=== PATIENT | female | born 1995 | race Caucasian/White ===

== ENCOUNTER 2016-12-29 18:15 | Emergency (ER) | payer BC ==
--- NOTE | 2016-12-29 18:33 | ERPHSYRPT ---
- History of Present Illness Time Seen by Provider: 12/29/16 18:28 Source: patient Exam Limitations: no limitations Patient Subjective Stated Complaint: PT PINK WARM ET DRY-A & O X 3-STATES THAT SHE HAS HAD A COUGH WITH LIGHT BROWN MUCOUS BEGINNING OVER A MONTH AGO-STATES THAT SHE HAS CLEAR NASAL DRAINAGE-PT DENIES FEVER Triage Nursing Assessment: LUNGS TIGHT ET DIMINISHED ON THE RIGHT-NO RETRACTIONS NOTED-RESP EASY ET NONLABORED AT THIS TIME Physician History: The patient is a 21-year-old female who comes in complaining of a cough for about one month. Her cough nearly resolved for about one week but for the past 2-3 weeks it is still present. Today she has a stuffy nose. She has chest pain when she takes a deep breath. She also has chest pain when she coughs. She smokes. Timing/Duration: week(s) (4) Cough Quality/Degree: productive cough Possible Cause: no prior episodes Modifying Factors: Improves With: coughing Associated Symptoms: cough, nasal drainage Allergies/Adverse Reactions: Antihistamines - Alkylamine Allergy (Intermediate, Verified 12/29/16 18:28) iodine Adverse Reaction (Intermediate, Verified 12/29/16 18:28) Home Medications: No Home Meds 1 ea MC UD 12/29/16 [History] Hx Tetanus, Diphtheria Vaccination/Date Given: Yes Hx Influenza Vaccination/Date Given: No Hx Pneumococcal Vaccination/Date Given: No Immunizations Up to Date: Yes - Review of Systems Constitutional: No Fever, No Chills Eyes: No Symptoms Ears, Nose, & Throat: No Symptoms Respiratory: Cough Cardiac: Chest Pain (with coughing) Abdominal/Gastrointestinal: No Abdominal Pain, No Nausea, No Vomiting, No Diarrhea Genitourinary Symptoms: No Dysuria Musculoskeletal: No Back Pain, No Neck Pain Skin: No Rash Neurological: No Dizziness, No Focal Weakness, No Sensory Changes Psychological: No Symptoms Endocrine: No Symptoms Hematologic/Lymphatic: No Symptoms Immunological/Allergic: No Symptoms All Other Systems: Reviewed and Negative - Past Medical History Pertinent Past Medical History: Yes Neurological History: Other - Past Surgical History Past Surgical History: Yes Neuro Surgical History: Neurological Surgery Other Surgical History: BRAIN SURGERY - Social History Smoking Status: Current every day smoker How long have you smoked: YRS Exposure to second hand smoke: No Drug Use: none Patient Lives Alone: No - Female History Hx Last Menstrual Period: IMPLANT Hx Now: No - Nursing Vital Signs Nursing Vital Signs: Initial Vital Signs Temperature 97.6 F Temperature Source Oral Pulse Rate 73 Respiratory Rate 22 Blood Pressure [Right Arm] 124/84 Pain Intensity 0 - Physical Exam General Appearance: no apparent distress, alert Eye Exam: PERRL/EOMI, eyes nml inspection Ears, Nose, Throat Exam: normal ENT inspection, TMs normal, pharynx normal, moist mucous membranes Neck Exam: normal inspection, non-tender, supple, full range of motion Respiratory Exam: normal breath sounds, lungs clear, No respiratory distress Cardiovascular Exam: regular rate/rhythm, normal heart sounds Gastrointestinal/Abdomen Exam: soft, No tenderness Pelvic Exam: not done Rectal Exam: not done Back Exam: normal inspection, No CVA tenderness, No vertebral tenderness Extremity Exam: normal inspection, normal range of motion Neurologic Exam: alert, oriented x 3, cooperative, normal mood/affect, sensation nml, No motor deficits Skin Exam: normal color, warm, dry, No rash Lymphatic Exam: No adenopathy SpO2 Interpretation: normal SpO2: 98 Oxygen Delivery: Room Air - Radiology Exams Chest X-ray Interpretation: Negative Ordered Tests: Active Orders 24 hr Category Date Time Status CHEST 2 VIEWS (PA AND LAT) Stat Exams 12/29/16 18:35 Taken Medication Summary Discontinued Medications Generic Name Dose Route Start Last Admin Trade Name Paul PRN Reason Stop Dose Admin Ketorolac Tromethamine 60 mg 12/29/16 18:36 Toradol 30 Mg Injection IM 12/29/16 18:37 STAT ONE - Progress Progress: unchanged Air Movement: good Blood Culture(s) Obtained: No Antibiotics given: No Counseled pt/family regarding: rad results - Departure Time of Disposition: 18:50 Departure Disposition: Home Clinical Impression: Cough Condition: Stable Critical Care Time: No Additional Instructions: Because you smoke and have had a cough for 1 month, please take augmentin 875 twice a day for 10 days. You have today off from work. Prescriptions: Amoxicillin/Potassium Clav [Augmentin 875-125 Tablet] 875 mg PO BID #20 tablet
[2016-12-29] MEDS ORDERED: TORAdol 30 mg Injection IM ONE (18:36)
[2016-12-29] MEDS ORDERED: TORAdol 30 mg Injection ONE (18:50)
[2016-12-29 19:00] VITALS: BP 115/80; PULSE 68; O2SAT 97
--- NOTE | 2016-12-29 22:25 | XRAY ---
Indication: Productive cough. Comparison: October 05, 2012. PA/lateral chest again demonstrates normal heart and lungs. Bony thorax intact with stable minimal scoliosis. No new/acute findings.
== END 2016-12-29 19:00 | disposition home or self-care (01) ==
LOC: ED 18:15
DX: R05 Cough (principal); R07.89 Other chest pain
CPT/HCPCS: 71020; 96372; 99284; J1885

== ENCOUNTER 2017-02-14 23:03 | Emergency (ER) | payer BC ==
--- NOTE | 2017-02-14 23:45 | ERPHSYRPT ---
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 PT C/O LOWER MID SHARP INTERMITTENT ABDOMINAL/PELVIC PAIN LASTING UP TO 15 SECONDS PER EPISODE. LAST BM WAS TODAY & WNL. PT ALSO FEELS WEAK & LIGHTHEADED SINCE YESTERDAY. Allergies/Adverse Reactions: Antihistamines - Alkylamine Allergy (Intermediate, Verified 02/14/17 23:34) iodine Adverse Reaction (Intermediate, Verified 02/14/17 23:34) Home Medications: Levonorgestrel [Blanca] 02/15/17 [History] Hx Tetanus, Diphtheria Vaccination/Date Given: Yes Hx Influenza Vaccination/Date Given: No Hx Pneumococcal Vaccination/Date Given: No - Review of Systems Constitutional: Weakness Abdominal/Gastrointestinal: Abdominal Pain Genitourinary Symptoms: Vaginal Bleeding Musculoskeletal: Back Pain (OCCASIONAL LOW BACK PAIN(ONGOING).) Neurological: Other (LIGHTHEADEDNESS) All Other Systems: Reviewed and Negative - Past Medical History Pertinent Past Medical History: Yes Neurological History: Other - Past Surgical History Past Surgical History: Yes Neuro Surgical History: Neurological Surgery Other Surgical History: BRAIN SURGERY colposcopy 02/07 - Social History Smoking Status: Never smoker How long have you smoked: YRS Exposure to second hand smoke: No Drug Use: none Patient Lives Alone: No - Female History Hx Last Menstrual Period: 2 months ago Hx Now: No - Nursing Vital Signs Nursing Vital Signs: Initial Vital Signs Temperature 99 F Temperature Source Oral Pulse Rate 76 Respiratory Rate 16 Blood Pressure [] 116/78 Pain Intensity 0 - Physical Exam General Appearance: alert Eye Exam: PERRL/EOMI, eyes nml inspection Ears, Nose, Throat Exam: TMs normal, pharynx normal, moist mucous membranes Neck Exam: normal inspection Respiratory Exam: lungs clear Cardiovascular Exam: regular rate/rhythm, normal heart sounds Gastrointestinal/Abdomen Exam: soft, normal bowel sounds Back Exam: normal range of motion Extremity Exam: normal inspection, No pedal edema Neurologic Exam: alert, cooperative Skin Exam: warm, dry - Course Nursing assessment & vital signs reviewed: Yes - CT Exams Abdomen/Pelvis CT Interpretation: Tele-radiologist Report (IUD IN APPROPRIATE POSITION. CORRELATE CLINICALLY FOR INFECTION. RECOMMEND ULTRASOUND THE UTERUS AND STRIPE ARE BETTER EVALUATED SONOGRAPHICALLY. MILD STRANDING IN THE ANTERIOR PELVIC FAT.) - Radiology Ultrasound Exam Pelvis Ultrasound: Other (TECH REPORT: IUD IN PLACE; NO ABSCESS OR SIGN OF INFECTION.) Ordered Tests: Active Orders 24 hr Category Date Time Status Clean Catch Urine Specimen STAT Care 02/15/17 00:06 Active ABDOMEN AND PELVIS W/0 CONTRAS [CT] Stat Exams 02/14/17 23:42 Taken PELVIS TRANS VAGINAL [US] Stat Exams 02/15/17 01:13 Taken AMYLASE Stat Lab 02/14/17 23:50 Completed CBC W DIFF Stat Lab 02/14/17 23:50 Completed CMP Stat Lab 02/14/17 23:50 Completed HCG QUALITATIVE,SERUM Stat Lab 02/14/17 23:50 Completed LIPASE Stat Lab 02/14/17 23:50 Completed PROTIME WITH INR Stat Lab 02/14/17 23:50 Completed PTT Stat Lab 02/14/17 23:50 Completed UA W/ MICROSCOPIC Stat Lab 02/14/17 23:55 Completed Urine Triage Profile Stat Lab 02/15/17 00:06 Completed Lab/Rad Data: Laboratory Result Diagrams 02/14/17 23:50 02/14/17 23:50 Laboratory Results 02/15/17 02/14/17 02/14/17 Range/Units 00:06 23:55 23:50 WBC (4.0-10.5) K/mm3 RBC (4.1-5.4) M/mm3 Hgb (12.0-16.0) gm/dl Hct (35-47) % MCV (78-100) fl MCH (26-32) pg MCHC (32-36) g/dl RDW (11.5-14.0) % Plt Count (150-450) K/mm3 MPV (6-9.5) fl Gran % (36.0-66.0) % Lymphocytes % (24.0-44.0) % Monocytes % (0.0-12.0) % Eosinophils % (0.00-5.0) % Basophils % (0.0-0.4) % Basophils # (0-0.4) INR 0.92 (0.8-3.0) PTT 25.7 (25.3-37.0) SECONDS Sodium (136-145) mEq/L Potassium (3.5-5.1) mEq/L Chloride (98-107) mEq/L Carbon Dioxide (21-32) mEq/L Anion Gap (5-15) MEQ/L BUN (9-20) mg/dL Creatinine (0.55-1.30) mg/dl Estimated GFR ML/MIN Glucose (70-110) MG/DL Calcium (8.5-10.1) mg/dL Total Bilirubin (0.2-1.0) mg/dL AST (15-37) U/L ALT (12-78) U/L Alkaline Phosphatase (46-116) U/L Serum Total Protein (6.4-8.2) gm/dL Albumin (3.4-5.0) g/dL Amylase (25-115) U/L Lipase (73-393) U/L Serum , Qual (Negative) Ur Collection Type CLEAN CATCH Urine Color LT.YELLOW (YELLOW) Urine Appearance CLEAR (CLEAR) Urine pH 7.0 (5-6) Ur Specific [place] 1.010 (1.005-1.025) Urine Protein NEGATIVE (Negative) Urine Glucose (UA) NEGATIVE (NEGATIVE) mg/dL Urine Ketones NEGATIVE (NEGATIVE) Urine Nitrite NEGATIVE (NEGATIVE) Urine Bilirubin NEGATIVE (NEGATIVE) Urine Urobilinogen 0.2 (0-1) mg/dL Urine WBC (Auto) NEGATIVE (NEGATIVE) Urine RBC (Auto) LARGE (0-5) Ti/ul Urine Microscopic RBC 25-50 (0-2) /HPF Ur Epithelial Cells FEW (FEW) /HPF Urine Opiates Level NEG. (NEGATIVE) Ur Methadone NEG. (NEGATIVE) Urine Barbiturates NEG. (NEGATIVE) Ur Phencyclidine (PCP) NEG. (NEGATIVE) Urine Amphetamine NEG. (NEGATIVE) U Benzodiazepine Level NEG. (NEGATIVE) Urine Cocaine NEG. (NEGATIVE) Urine Marijuana (THC) NEG. (NEGATIVE) Specimen Received 02/14/17:2355 02/14/17 02/14/17 02/14/17 Range/Units 23:50 23:50 23:50 WBC 6.3 (4.0-10.5) K/mm3 RBC 4.19 (4.1-5.4) M/mm3 Hgb 13.2 (12.0-16.0) gm/dl Hct 38.3 (35-47) % MCV 91.4 (78-100) fl MCH 31.5 (26-32) pg MCHC 34.5 (32-36) g/dl RDW 11.7 (11.5-14.0) % Plt Count 279 (150-450) K/mm3 MPV 10.2 H (6-9.5) fl Gran % 43.4 (36.0-66.0) % Lymphocytes % 46.9 H (24.0-44.0) % Monocytes % 5.7 (0.0-12.0) % Eosinophils % 3.7 (0.00-5.0) % Basophils % 0.3 (0.0-0.4) % Basophils # 0.02 (0-0.4) INR (0.8-3.0) PTT (25.3-37.0) SECONDS Sodium 138 (136-145) mEq/L Potassium 3.8 (3.5-5.1) mEq/L Chloride 104 (98-107) mEq/L Carbon Dioxide 27.4 (21-32) mEq/L Anion Gap 10.6 (5-15) MEQ/L BUN 16 (9-20) mg/dL Creatinine 0.82 (0.55-1.30) mg/dl Estimated GFR > 60 ML/MIN Glucose 96 (70-110) MG/DL Calcium 8.6 (8.5-10.1) mg/dL Total Bilirubin 0.2 (0.2-1.0) mg/dL AST 16 (15-37) U/L ALT 14 (12-78) U/L Alkaline Phosphatase 55 (46-116) U/L Serum Total Protein 7.0 (6.4-8.2) gm/dL Albumin 4.0 (3.4-5.0) g/dL Amylase 45 (25-115) U/L Lipase 136 (73-393) U/L Serum , Qual NEGATIVE (Negative) Ur Collection Type Urine Color (YELLOW) Urine Appearance (CLEAR) Urine pH (5-6) Ur Specific [place] (1.005-1.025) Urine Protein (Negative) Urine Glucose (UA) (NEGATIVE) mg/dL Urine Ketones (NEGATIVE) Urine Nitrite (NEGATIVE) Urine Bilirubin (NEGATIVE) Urine Urobilinogen (0-1) mg/dL Urine WBC (Auto) (NEGATIVE) Urine RBC (Auto) (0-5) Ti/ul Urine Microscopic RBC (0-2) /HPF Ur Epithelial Cells (FEW) /HPF Urine Opiates Level (NEGATIVE) Ur Methadone (NEGATIVE) Urine Barbiturates (NEGATIVE) Ur Phencyclidine (PCP) (NEGATIVE) Urine Amphetamine (NEGATIVE) U Benzodiazepine Level (NEGATIVE) Urine Cocaine (NEGATIVE) Urine Marijuana (THC) (NEGATIVE) Specimen Received - Departure Time of Disposition: 03:10 Departure Disposition: Home Clinical Impression: VAGINAL BLEEDING, PELVIC/ABDOMINAL PAIN, S/P COLPOSCOPY DAY 8 Condition: Fair Critical Care Time: No Instructions: Abdominal Pain-Adult, Vaginal Bleeding Additional Instructions: FOLLOW UP [facility]CTOR LATER TODAY. STRICT BED REST UNTIL DOCTOR IS SEEN TODAY.
[2017-02-15 00:03] LABS: BASOPHIL % 0.3 % (0.0-0.4); Eosinophil % 3.7 % (0.00-5.0); Granulocytes % 43.4 % (36.0-66.0); Lymphocytes % 46.9 % (24.0-44.0); Mean Cell Volume 91.4 fl (78-100); Mean Corpuscular Hemoglobin 31.5 pg (26-32); Mean Platelet Volume 10.2 fl (6-9.5); Monocytes % 5.7 % (0.0-12.0); Platelet Count 279 K/mm3 (150-450); Red Blood Count 4.19 M/mm3 (4.1-5.4); Red Cell Distribution Width 11.7 % (11.5-14.0); White Blood Count 6.3 K/mm3 (4.0-10.5)
[2017-02-15 00:14] LABS: COMPLETE URINE MICROSCOPIC? YES; Collection Type CLEAN CATCH; Epithelial Cells FEW /HPF (FEW)
[2017-02-15 00:16] LABS: INR 0.92 (0.8-3.0); PROTIME 10.3 SECONDS (9.95-12.35)
[2017-02-15 00:18] LABS: PTT 25.7 SECONDS (25.3-37.0)
[2017-02-15 00:23] LABS: ALKALINE PHOSPHATASE 55 U/L (46-116); ANION GAP 10.6 MEQ/L (5-15); BILIRUBIN,TOTAL 0.2 mg/dL (0.2-1.0); BLOOD UREA NITROGEN 16 mg/dL (9-20); CHLORIDE 104 mEq/L (98-107); Carbon Dioxide 27.4 mEq/L (21-32); Glucose 96 MG/DL (70-110); LIPASE 136 U/L (73-393); Potassium 3.8 mEq/L (3.5-5.1); SGOT/AST 16 U/L (15-37); SGPT/ALT 14 U/L (12-78); SODIUM 138 mEq/L (136-145)
[2017-02-15 01:35] VITALS: BP 116/78; PULSE 76; O2SAT 99
--- NOTE | 2017-02-15 09:36 | XRAY ---
Indication: Pain. Vaginal bleeding. Status post cervical biopsy February 07, 2017. Two-dimensional transvaginal pelvic ultrasound was performed. Comparison: November 02, 2015. Uterus again anteverted today measuring 6.9 x 3.5 x 4.1 cm. IUD appears in good position. No suspicious solid/cystic uterine mass. No endometrial cavity fluid collection either. Right ovary measures 2.1 x 1.4 x 1.9 cm and the left measures 3.0 x 2.4 x 2.9 cm. Normal color Doppler flow and follicular cysts bilaterally. No suspicious adnexal mass or free fluid. Impression: IUD appears in good position. Remaining transvaginal pelvic sonogram is negative. Comment: Preliminary report was given.
--- NOTE | 2017-02-15 09:39 | XRAY ---
Indication: Pain. Vaginal bleeding. Status post cervical biopsy February 07, 2017. Multiple contiguous axial images obtained through the abdomen and pelvis without contrast as ordered. Comparison: None Lung bases are clear. Heart is not enlarged. Noncontrasted stomach and bowel loops appear nonobstructed. Appendix not seen. No free fluid/air. IUD in situ. Remaining liver, gallbladder, pancreas, spleen, adrenal glands, kidneys, ureters, bladder, uterus, and aorta appear unremarkable for noncontrast exam. Osseous structures intact. Impression: IUD in situ. Remaining CT abdomen/pelvis without contrast exam is negative. Comment: Preliminary interpretation was made by [facility]. No critical discrepancy. CTDI 8.91
== END 2017-02-15 03:18 | disposition home or self-care (01) ==
LOC: ED 23:03
DX: N93.9 Abnormal uterine and vaginal bleeding, unspecified (principal); R10.2 Pelvic and perineal pain; R10.9 Unspecified abdominal pain; Z98.890 Other specified postprocedural states
CPT/HCPCS: 36415; 74176; 76830; 80053; 80307; 81000; 82150; 83690; 84703; 85025; 85610; 85730; 99284

== ENCOUNTER 2020-11-23 10:42 | Emergency (ER) | payer OTHER ==
[2020-11-23 11:42] LABS: Absolute Neutrophil Ct (ANC) 2.49 (1.4-6.9); BASOPHIL % 0.2 % (0.0-0.4); Basophil (Absolute #) 0.01 (0-0.4); Eosinophil % 1.5 % (0.00-5.0); Eosinophil (Absolute #) 0.07 (0-0.5); Hematocrit 39.5 % (35-47); Hemoglobin 13.2 gm/dl (12.0-16.0); Lymphocyte (Absolute #) 1.91 (1.0-4.6); Lymphocytes % 40.1 % (24.0-44.0); Mean Cell Volume 92.3 fl (78-100); Mean Corpuscular Hemoglobin 30.8 pg (26-32); Mean Corpuscular Hgb Concent. 33.4 g/dl (32-36); Mean Platelet Volume 10.1 fl (7.5-11.0); Monocyte (Absolute #) 0.28 (0.0-1.3); Monocytes % 5.9 % (0.0-12.0); Neutrophil % 52.3 % (36.0-66.0); Platelet Count 284 K/mm3 (150-450); Red Blood Count 4.28 M/mm3 (4.1-5.4); Red Cell Distribution Width 12.5 % (11.5-14.0); White Blood Count 4.8 K/mm3 (4.0-10.5)
[2020-11-23 12:09] LABS: ALBUMIN 4.4 g/dL (3.5-5.0); ALKALINE PHOSPHATASE 54 U/L (38-126); BLOOD UREA NITROGEN 13 mg/dL (7-17); CHLORIDE 104 mmol/L (98-107); Calcium 9.8 mg/dL (8.4-10.2); Carbon Dioxide 27 mmol/L (22-30); Creatinine 1 0.56 mg/dL (0.52-1.04); EST GLOMERULAR FILTRATION RATE > 60.0 ML/MIN; Glucose 93 mg/dL (74-106); Potassium 4.1 mmol/L (3.5-5.1); SGOT/AST 20 U/L (14-36); SGPT/ALT 13 U/L (0-35); SODIUM 138 mmol/L (137-145); Total Protein 7.4 g/dL (6.3-8.2)
--- NOTE | 2020-11-23 12:23 | XRAY ---
Indication: Headache. Craniotomy 2010. Multiple contiguous axial images obtained through the head without contrast. Comparison: None Remote left posterior parietal/occipital craniotomy with underlying encephalomalacia and multiple intracranial metallic densities producing beam artifact. Remaining brain negative for acute intracranial hemorrhage, hydrocephalus, or mass effect. Wyman-white matter differentiation preserved. Remaining bony calvarium intact. Visualized paranasal sinuses and mastoid air cells are clear. Impression: 1. 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 Outside comparison studies would be beneficial. 2. Remaining CT head without contrast exam is negative.
[2020-11-23] MEDS ORDERED: Zofran 4 MG/2 ML VIAL ONE (12:26)
[2020-11-23] MEDS ORDERED: TYLENOL 325 MG ONE (12:26)
[2020-11-23] MEDS ORDERED: MORPHINE SULFATE 2 MG INJ ONE (12:26)
[2020-11-23] MEDS ORDERED: Sodium Chloride 0.9% 1000 ML 1,000 ML ONE (12:27)
[2020-11-23] MEDS ORDERED: Reglan 10 MG/2 ML ONE (12:27)
[2020-11-23] MEDS: TYLENOL 325 MG PO ONE (12:32)
[2020-11-23] MEDS: Sodium Chloride 0.9% 1000 ML 1,000 ML IV STA (12:35)
[2020-11-23] MEDS: Zofran 4 MG/2 ML VIAL IV ONE (12:37)
[2020-11-23] MEDS: MORPHINE SULFATE 2 MG INJ IV ONE (12:39)
[2020-11-23] MEDS: Reglan 10 MG/2 ML IV ONE (12:42)
[2020-11-23] MEDS: KEPPRA 500 MG PO STA (13:55)
[2020-11-23 14:06] VITALS: BP 96/66; PULSE 61; O2SAT 98
--- NOTE | 2020-11-23 14:15 | ERPHSYRPT ---
- History of Present Illness Time Seen by Provider: 11/23/20 10:46 Source: patient Exam Limitations: no limitations Patient Subjective Stated Complaint: Pt c/o of a headache for the past week and began having neck pain approx 3-4 days ago and the past couple of days pt has been disoriented and dizzy, pt has EEG scheduled for tomorrow and an MRI is being scheduled, pt has a history of an AVM that surgery was done on in [address] 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 Denies any double vision. Patient reports she occasionally feels some confusion and dizzy as if she is having a seizure like episode which last for few minutes and improves. No difficulty speech, no focal numbness tingling or weakness. Patient has followed up with her primary care and is EEG scheduled for tomorrow and MRI to be done outpatient. Denies any recent head trauma Timing/Duration: week(s) (1), gradual onset, worse Quality: sharpness Head Pain Location: occipital Severity of Pain-Max: moderate Severity of Pain-Current: moderate Recent Head Trauma: no recent headache/trauma, occasional headaches Associated Symptoms: dizziness, neck pain, visual disturbance, No fever/chills, No light-headedness, No nausea/vomiting, No nasal congestion, No sensitive to light, No speech problems, No stiff neck, No weakness Allergies/Adverse Reactions: Antihistamines - Alkylamine Allergy (Intermediate, Verified 11/23/20 11:03) iodine Adverse Reaction (Intermediate, Verified 11/23/20 11:03) Hx Tetanus, Diphtheria Vaccination/Date Given: Yes Hx Influenza Vaccination/Date Given: No Hx Pneumococcal Vaccination/Date Given: No Travel Risk - International Travel Have you traveled outside of the country in past 3 weeks: No - Coronavirus Screening Are you exhibiting any of the following symptoms?: No Close contact with a COVID-19 positive Pt in past 14-21 Days: No - Review of Systems Constitutional: No Symptoms Eyes: Vision Changes Ears, Nose, & Throat: No Symptoms Respiratory: No Symptoms Cardiac: No Symptoms Abdominal/Gastrointestinal: No Symptoms Genitourinary Symptoms: No Symptoms Musculoskeletal: No Symptoms Skin: No Symptoms Neurological: Dizziness, Headache Psychological: No Symptoms Endocrine: No Symptoms Hematologic/Lymphatic: No Symptoms Immunological/Allergic: No Symptoms - Past Medical History Pertinent Past Medical History: Yes Neurological History: Other Other Medical History: av malformation - Past Surgical History Past Surgical History: Yes Neuro Surgical History: Neurological Surgery Other Surgical History: BRAIN SURGERY colposcopy 02/07 - Social History Smoking Status: Current every day smoker How long have you smoked: YRS Exposure to second hand smoke: No Drug Use: none Patient Lives Alone: Yes - Female History Hx Now: No (nexpinan) - Nursing Vital Signs Nursing Vital Signs: Initial Vital Signs Temperature 98.3 F 11/23/20 10:50 Pulse Rate 76 11/23/20 10:50 Blood Pressure 115/73 11/23/20 10:50 O2 Sat by Pulse Oximetry 100 11/23/20 10:50 Pain Scale Pain Intensity 7 - Physical Exam General Appearance: no apparent distress, alert Eye Exam: PERRL/EOMI, eyes nml inspection, other (Right peripheral visual field deficit) Ears, Nose, Throat Exam: normal ENT inspection, TMs normal, pharynx normal Neck Exam: normal inspection, non-tender, supple, full range of motion Respiratory Exam: normal breath sounds, lungs clear Cardiovascular Exam: regular rate/rhythm, normal heart sounds Gastrointestinal/Abdominal Exam: soft, normal bowel sounds Back Exam: normal inspection Extremity Exam: normal inspection, normal range of motion, pelvis stable Mental Status Exam: alert, oriented x 3, cooperative pathologist Exam: normal hearing, normal speech, PERRL Coordination/Gait Exam: normal finger to nose, normal gait, normal cerebellar function, negative Romberg's sign Motor/Sensory Exam: no motor deficit, no sensory deficit, no pronator drift, negative Babinski's sign DTR Exam: bicep (R): 2+, bicep (L): 2+, knee (R): 2+, knee (L): 2+, ankle (R): 2+, ankle (L): 2+ Skin Exam: normal color SpO2 Interpretation: normal SpO2: 98 O2 Delivery: Room Air (Patient) Ordered Tests: Active Orders 24 hr Category Date Time Status NPO (ED) STAT Care 11/23/20 11:20 Completed Consult Tele-Health [Tele-Health Consult] ROUTINE Cons 11/23/20 13:02 Completed HEAD WITHOUT CONTRAST [CT] Stat Exams 11/23/20 11:55 Completed CBC W DIFF Stat Lab 11/23/20 11:35 Completed CMP Stat Lab 11/23/20 11:35 Completed HCG,QUALITATIVE URINE Stat Lab 11/23/20 11:37 Completed Medication Summary Discontinued Medications Generic Name Dose Route Start Last Admin Trade Name Freq PRN Reason Stop Dose Admin Acetaminophen 975 mg 11/23/20 11:22 11/23/20 12:32 Tylenol 325 Mg PO 11/23/20 11:23 975 mg STAT ONE Administration Acetaminophen Confirm 11/23/20 12:26 Tylenol 325 Mg Administered 11/23/20 12:27 Dose 975 mg .ROUTE .STK-MED ONE Sodium Chloride 1,000 mls @ 999 mls/hr 11/23/20 11:20 11/23/20 14:06 Sodium Chloride 0.9% 1000 Ml IV 11/23/20 12:20 Infused .Q1H1M STA Infusion Sodium Chloride Confirm 11/23/20 12:27 Sodium Chloride 0.9% 1000 Ml Administered 11/23/20 12:28 Dose 1,000 mls @ ud .ROUTE .STK-MED ONE Levetiracetam 500 mg 11/23/20 13:31 11/23/20 13:55 Keppra 500 Mg PO 11/23/20 13:32 500 mg ONCE STA Administration Metoclopramide HCl 10 mg 11/23/20 11:21 11/23/20 12:42 Reglan 10 Mg/2 Ml IV 11/23/20 11:22 10 mg STAT ONE Administration Metoclopramide HCl Confirm 11/23/20 12:27 Reglan 10 Mg/2 Ml Administered 11/23/20 12:28 Dose 10 mg .ROUTE .STK-MED ONE Morphine Sulfate 2 mg 11/23/20 11:22 11/23/20 12:39 Morphine Sulfate 2 Mg Inj IV 11/23/20 11:23 2 mg STAT ONE Administration Morphine Sulfate Confirm 11/23/20 12:26 Morphine Sulfate 2 Mg Inj Administered 11/23/20 12:27 Dose 2 mg .ROUTE .STK-MED ONE Ondansetron HCl 4 mg 11/23/20 11:22 11/23/20 12:37 Zofran 4 Mg/2 Ml Vial IV 11/23/20 11:23 4 mg STAT ONE Administration Ondansetron HCl Confirm 11/23/20 12:26 Zofran 4 Mg/2 Ml Vial Administered 11/23/20 12:27 Dose 4 mg .ROUTE .STK-MED ONE Lab/Rad Data: Laboratory Result Diagrams 11/23/20 11:35 11/23/20 11:35 Laboratory Results 11/23/20 11/23/20 11/23/20 Range/Units 11:37 11:35 11:35 WBC 4.8 (4.0-10.5) K/mm3 RBC 4.28 (4.1-5.4) M/mm3 Hgb 13.2 (12.0-16.0) gm/dl Hct 39.5 (35-47) % MCV 92.3 (78-100) fl MCH 30.8 (26-32) pg MCHC 33.4 (32-36) g/dl RDW 12.5 (11.5-14.0) % Plt Count 284 (150-450) K/mm3 MPV 10.1 (7.5-11.0) fl Gran % 52.3 (36.0-66.0) % Eos # (Auto) 0.07 (0-0.5) Absolute Lymphs (auto) 1.91 (1.0-4.6) Absolute Monos (auto) 0.28 (0.0-1.3) Lymphocytes % 40.1 (24.0-44.0) % Monocytes % 5.9 (0.0-12.0) % Eosinophils % 1.5 (0.00-5.0) % Basophils % 0.2 (0.0-0.4) % Absolute Granulocytes 2.49 (1.4-6.9) Basophils # 0.01 (0-0.4) Sodium 138 (137-145) mmol/L Potassium 4.1 (3.5-5.1) mmol/L Chloride 104 (98-107) mmol/L Carbon Dioxide 27 (22-30) mmol/L Anion Gap 11.0 (5-15) MEQ/L BUN 13 (7-17) mg/dL Creatinine 0.56 (0.52-1.04) mg/dL Estimated GFR > 60.0 ML/MIN Glucose 93 (74-106) mg/dL Calcium 9.8 (8.4-10.2) mg/dL Total Bilirubin 0.40 (0.2-1.3) mg/dL AST 20 (14-36) U/L ALT 13 (0-35) U/L Alkaline Phosphatase 54 (38-126) U/L Serum Total Protein 7.4 (6.3-8.2) g/dL Albumin 4.4 (3.5-5.0) g/dL Urine HCG, Qual NEGATIVE (Negative) - Progress Progress: improved ( comes in) Air Movement: good Progress Note: 11/23/20 14:[address] head without contrast which is negative. She is given Reglan and Tylenol, on reevaluation her headache is better. She has a negative neuro exam except for what she has right hemianopsia from previous surgery. I have obtained telemetry neuro consult and patient is evaluated by neurology who thinks patient might have these evidence of occipital seizure or migrainous phenomena as AVMs are notorious for that. She does not have the worst headache of her life and do not think it would be intracranial bleed. Recommended empirically starting her on Keppra which she is started. I have called her primary neurologist Dr. Ac, recommended outpatient follow-up to be scheduled as patient have not seen him in the last 3 years. He also recommended getting MRI but no MRI services/appointment available to be done in today. Patient is offered observation admission but she wants to go home. She would follow-up outpatient with her primary neurologist/neurosurgeon. Discussed signs symptoms of worsening needing return to ER which she seems understanding. Stable for discharge. Blood Culture(s) Obtained: No Antibiotics given: No Discussed with : Other (Frankie Schaefer) Counseled pt/family regarding: lab results, diagnosis, need for follow-up, rad results - Departure Departure Disposition: Home Clinical Impression: Headache Qualifiers: Headache type: other headache syndrome Qualified Code(s): G44.89 - Other heada divya syndrome Condition: Stable Critical Care Time: No Referrals: AMARJIT MAHER [Primary Care Provider] - (1-2 days for reevaluation) Instructions: Seizures, Adult (DC), Headache, Adult (DC), Driving Restrictions Additional Instructions: Follow-up with your neurologist Dr. Ac and neurosurgeon at [facility] for reevaluation. Follow-up with primary care for reevaluation and outpatient MRI scheduling. Keep your appointment for EEG tomorrow. Take Keppra and folate regularly. Return to ER for worsening headache or if has any numbness tingling weakness, visual disturbance etc. Prescriptions: Folic Acid 1 mg [Folate 1 mg] 1 mg PO DAILY 60 Days #60 tablet Levetiracetam [Keppra 500 mg ] 500 mg PO BID 30 Days #60 tablet
== END 2020-11-23 14:26 | disposition home or self-care (01) ==
LOC: ED 10:42
DX: G44.89 Other headache syndrome (principal); M54.2 Cervicalgia; R42 Dizziness and giddiness; H53.8 Other visual disturbances; R11.0 Nausea; F17.200 Nicotine dependence, unspecified, uncomplicated
CPT/HCPCS: 36000; 36415; 70450; 80053; 84703; 85025; 96360; 96374; 96375; 99284; J2270; J2405; A9270-GY